=== PATIENT | male | born 2000 | race American Indian/Alaskan Native ===

== ENCOUNTER 2020-02-02 16:50 | Emergency (ER) | payer BC ==
[2020-02-02 16:55] VITALS: BP 135/83
[2020-02-02] MEDS ORDERED: DIPHtheria,PERTUSSIS(ACELL),TETANUS VACCINE/PF 0.5 ML VIAL IM ONE (19:37)
--- NOTE | 2020-02-02 19:42 | Emergency Department Report ---
ED Laceration HPI - HPI Chief Complaint: Wound/Laceration Stated Complaint: RIGHT HAND CUT Time Seen by Provider: 02/02/20 19:25 Other History: 19-year-old -[place] male patient presents with complaints of right middle finger laceration today. Patient states while he was washing dishes, he dug his hand into the sink and cut the tip of his finger on a knife. Patient states he was having difficulty stopping the bleeding, however he denies being on any blood thinners, numbness/tingling/weakness in his finger or hand, or difficulty moving his finger. Patient states he does not know when his last tetanus vaccination was. He rates his current pain as a 3/10 in severity. ED Review of Systems ROS: Stated complaint: RIGHT HAND CUT Other details as noted in HPI Constitutional: denies: chills, fever Musculoskeletal: denies: joint swelling, arthralgia Skin: denies: lesions Neurological: denies: numbness, paresthesias ED Past Medical Hx - Past Medical History Previous Medical History?: No - Social History Smoking Status: Never Smoker Substance Use Type: None - Medications Home Medications: Home Medications Medication Instructions Recorded Confirmed Last Taken Type Mupirocin [Bactroban 2% OINT] 1 applic TP TID 7 Days #1 tube 02/02/20 Unknown Rx Laceration Physical Exam - Exam General: Vital signs noted. No distress. Alert and acting appropriately. Wound Length (cm): 1 (superficial, shave laceration ) Laceration Location: Upper Extremity (Right middle finger) Laceration Exam: Yes Normal Distal CMS (Normal perfusion, range of motion, and sensation of the finger noted), No Foreign Body, No Exposed Tendon, Vessel, or Nerve, No Tendon Injury ED Course Vital Signs 02/02/20 16:51 Temperature 98.7 F Pulse Rate 78 Respiratory 16 Rate Blood Pressure 135/83 O2 Sat by Pulse 100 Oximetry ED Medical Decision Making - Medical Decision Making Patient presents with shave laceration to right middle finger. No sutures are indicated. Tetanus vaccination was updated. Patient is stable for discharge home. Prescription for mupirocin given. Discussed wound care, signs and symptoms of infection, and strict return precautions in great detail with patient who verbalizes understanding. Critical care attestation.: If time is entered above; I have spent that time in minutes in the direct care of this critically ill patient, excluding procedure time. ED Disposition Clinical Impression: Laceration of right middle finger w/o foreign body w/o damage to nail Qualifiers: Encounter type: initial encounter Qualified Code(s): S61.212A - Laceration without foreign body of right middle finger without damage to nail, initial encounter Disposition: - TO HOME OR SELFCARE Is pt being admited?: No Condition: Stable Instructions: Finger Laceration (ED) Prescriptions: Mupirocin [Bactroban 2% OINT] 1 applic TP TID 7 Days #1 tube Referrals: PRIMARY CARE, [Primary Care Provider] - as needed
== END 2020-02-02 20:10 | disposition home or self-care (01) ==
LOC: ED 16:50
DX: S61.212A Laceration without foreign body of right middle finger without damage to nail, initial encounter (principal); X58.XXXA Exposure to other specified factors, initial encounter; Y93.89 Activity, other specified; Y92.89 Other specified places as the place of occurrence of the external cause; Y99.8 Other external cause status
CPT/HCPCS: 90471; 90715; 99282